=== PATIENT | male | born 1965 | race Caucasian/White ===

== ENCOUNTER 2017-02-21 07:56 | Day surgery (SDC) | payer BC ==
[2017-02-16 15:14] VITALS: BMI 34.5
[~2017-02-21 07:56] MED LIST: LACTATED RINGERS 1,000 ML IV SCH
[2017-02-21 08:16] VITALS: RESP 16; TEMP 97.1
[2017-02-21] MEDS ORDERED: LIDOCAINE 1% 20 ML VIAL (10MG/ML) FOR IV START INTRADERMA ONE (08:25)
[2017-02-21] MEDS ORDERED: PROPOFOL 10 MG/ML 20 ML VIAL IV ONE (09:10)
[2017-02-21] MEDS ORDERED: fentaNYL (PF) 50 MCG/ML 2 ML AMP ONE (09:10)
[2017-02-21] MEDS ORDERED: MIDAZOLAM 2 MG/2 ML VIAL ONE (09:10)
--- NOTE | 2017-02-21 09:49 | P.PCN ---
Date of Procedure: 02/21/17 Procedure(s) Performed: Procedure: Colonoscopy and polypectomy. Preoperative diagnosis: Screening for neoplasia. Postoperative diagnosis: 1. Sigmoid diverticulosis with no evidence of acute diverticulitis or strictures. 2. Multiple sigmoid polyps snared but no large polyps or cancer. Preparation: HalfLytely prep. Sedation: Was provided by anesthesia. Brief clinical history: The patient is a 51-year-old male who is referred for this evaluation for screening for neoplasia age being his risk factor. He has occasional postprandial urgent bowel movements, otherwise, he has no abdominal complaints, bleeding or anemia. No family history of colon cancer. This would be his first colonoscopy. Procedure: With the patient on his left lateral decubitus position and after informed consent and adequate sedation, the perianal area was inspected and it did not show any fissures or fistulas. There were no masses felt on digital rectal examination. The Olympus CFQ 160L video colonoscope was then inserted in the rectum in the usual fashion and advanced to the cecum. There were a few diverticular orifices seen scattered in the sigmoid but I saw no evidence of acute diverticulitis or strictures. Multiple small and medium-sized polyps polyps were seen in the sigmoid which were snared and retrieved by suction, but there was no large polyps or cancer. I retroflexed the endoscope in the rectum before the endoscope was withdrawn. The patient tolerated the procedure well. Plan: The patient was reassured. Discussed dietary measures. I anticipate repeating his colonoscopy in 3-5 years depending on the pathology results. He will follow up with you as planned.
[2017-02-21 10:06] VITALS: BP 125/84; PULSE 72
== END 2017-02-21 10:14 | disposition home or self-care (01) ==
LOC: ORWHC2ENDO 07:56
DX: Z12.11 Encounter for screening for malignant neoplasm of colon (principal); D12.5 Benign neoplasm of sigmoid colon; K63.5 Polyp of colon; K57.30 Diverticulosis of large intestine without perforation or abscess without bleeding; I10 Essential (primary) hypertension; E78.5 Hyperlipidemia, unspecified; F17.200 Nicotine dependence, unspecified, uncomplicated; Z79.1 Long term (current) use of non-steroidal anti-inflammatories (NSAID); Z79.891 Long term (current) use of opiate analgesic; Z79.899 Other long term (current) drug therapy
CPT/HCPCS: 88305; 45385; J2250; J3010; J2704

== ENCOUNTER 2018-11-11 09:35 | Emergency (ER) | payer BC ==
[2018-11-11 09:44] VITALS: TEMP 97.7
[2018-11-11] MEDS ORDERED: DIAZEPAM 5 MG/ML 2 ML INJ IM STA (09:50)
[2018-11-11] MEDS ORDERED: DIPH,PERTUS(ACELL)TETVAC-LF 0.5 ML VIAL IM ONE (09:55)
--- NOTE | 2018-11-11 10:08 | ED ---
Back Pain HPI - General Chief Complaint: Back Pain/Injury Stated Complaint: Fall-back pain Time Seen by Provider: 11/11/18 09:38 Source: patient, EMS, RN notes reviewed Mode of arrival: EMS Limitations: no limitations - History of Present Illness Initial Comments: This a 52-year-old male presents emergency department via EMS chief complaint fall. Patient states he slipped on some ice last night states that he previously crawled into the house and laid there. He was able to get up into his chair this morning but states pain was too unbearable. Patient states that he had lumbar discectomy 4 months ago at [facility]. Patient states that he's had chronic right leg numbness and pain which has not resolved. He denies any bowel, bladder incontinence or retention. Patient states he did strike his head but denies any loss conscious. He does have a small laceration from last night. He is unsure when his last tetanus was. Patient states he hasn't mild right-sided neck pain no posterior neck pain. Patient refused c-collar. Patient denies any upper extremity pain, chest pain, upper back pain, abdominal pain including nausea, vomiting, diarrhea constipation. Patient did take one [place] states that he has not had much relief from. He did not take any muscle relaxers. He states she's having spasms of his back. - Related Data Home Medications Medication Instructions Recorded Confirmed Atorvastatin [Lipitor] 40 mg PO DAILY 02/16/17 02/21/17 Celecoxib [CeleBREX] 200 mg PO DAILY 02/16/17 02/21/17 Cyclobenzaprine [Flexeril] 10 mg PO DAILY PRN 02/16/17 02/21/17 HYDROcodone/APAP 7.5-325MG [[place] 1 tab PO Q6HR PRN 02/16/17 02/21/17 7.5-325] Ibuprofen [Motrin] 800 mg PO TID 02/16/17 02/21/17 Lisinopril [Zestril] 40 mg PO QAM 02/16/17 02/21/17 amLODIPine BESYLATE [Norvasc] 5 mg PO QAM 02/16/17 02/21/17 Allergies Allergy/AdvReac Type Severity Reaction Status Date / Time No Known Allergies Allergy Verified 11/11/18 09:44 Review of Systems ROS Statement: Those systems with pertinent positive or pertinent negative responses have been documented in the HPI. ROS Other: All systems not noted in ROS Statement are negative. Past Medical History Past Medical History: Hyperlipidemia, Hypertension, Osteoarthritis (OA) History of Any Multi-Drug Resistant Organisms: None Reported Past Surgical History: Appendectomy Additional Past Surgical History / Comment(s): pain procedures,rt shoulder repair,lt foot repair x4 to crush injury, Discotomy 07/2018 Past Anesthesia/Blood Transfusion Reactions: No Reported Reaction Additional Past Anesthesia/Blood Transfusion Reaction / Comment(s): no hx blood transfusion Smoking Status: Current every day smoker - Past Family History Mother Family Medical History: No Reported History Father Family Medical History: No Reported History Brother(s) Family Medical History: Cancer Additional Family Medical History / Comment(s): brain General Exam Limitations: no limitations General appearance: alert, in no apparent distress Head exam: Present: atraumatic, normocephalic. Absent: normal inspection ( Small superficial laceration to occipital region) Eye exam: Present: normal appearance, PERRL, EOMI. Absent: scleral icterus, conjunctival injection, periorbital swelling ENT exam: Present: normal exam, normal oropharynx, mucous membranes moist Neck exam: Present: normal inspection, full ROM. Absent: tenderness, meningismus, lymphadenopathy Respiratory exam: Present: normal lung sounds bilaterally. Absent: respiratory distress, wheezes, rales, rhonchi, stridor Cardiovascular Exam: Present: regular rate, normal rhythm, normal heart sounds. Absent: systolic murmur, diastolic murmur, rubs, gallop, clicks GI/Abdominal exam: Present: soft, normal bowel sounds. Absent: distended, tenderness, guarding, rebound, rigid Extremities exam: Present: normal inspection, full ROM, normal capillary refill , other (Also states lower extremity equal bilaterally pain with right leg raise , any movement right leg ). Absent: tenderness, pedal edema, joint swelling, calf tenderness Back exam: Present: tenderness, paraspinal tenderness, vertebral tenderness. Absent: full ROM Neurological exam: Present: alert, oriented X3, CN II-XII intact, reflexes normal. Absent: motor sensory deficit Skin exam: Present: warm, dry, intact, normal color. Absent: rash Course Vital Signs 11/11/18 09:36 Temperature 97.7 F Pulse Rate 80 Respiratory 18 Rate Blood Pressure 128/80 O2 Sat by Pulse 99 Oximetry Medical Decision Making - Medical Decision Making 52-year-old male presented emergency department for slip and fall with complaints of neck and back pain. CT were obtained no acute fracture or intracranial hemorrhage. Patient will continue H[place] and Flexeril at home. Patient will follow-up with his surgeon. Return parameters were discussed. Disposition Clinical Impression: Neck pain, Lumbar back pain, Fall from slipping on ice Disposition: HOME SELF-CARE Condition: Stable Instructions (If sedation given, give patient instructions): Acute Low Back Pain (ED) Additional Instructions: Please return to the Emergency Department if symptoms worsen or any other concerns. Is patient prescribed a controlled substance at d/c from ED?: No Referrals: Niki Reveles DO [Primary Care Provider] - 1-2 days Time of Disposition: 11:51
--- NOTE | 2018-11-11 11:17 | CT ---
EXAMINATION TYPE: CT brain cspine wo con DATE OF EXAM: 11/11/2018 COMPARISON: NONE HISTORY: Fall injury with headache and neck pain Automated Exposure Control for Dose Reduction was Utilized. TECHNIQUE: CT scan of the head and cervical spine are performed without contrast. FINDINGS: There is no acute intracranial hemorrhage, mass effect, or midline shift identified. The ventricles and sulci are within normal limits in size. The globes are intact and the visualized sin uses are clear. The calvarium is intact. Cervical spine is visualized in its entirety from C1 through upper thoracic levels and demonstrates s atisfactory alignment without evidence of acute fracture or dislocation. Prevertebral soft tissue ap pears within normal limits. The C1-C2 articulation is within normal limits on the coronal images. V ertebral body heights within disc space heights are fairly well-maintained. There is severe anterior spurring mid to lower cervical levels. Posterior spur disc complexes are effacing anterior thecal sac at C5-C6 and C6-C7 level on sagittal images. Some uncovertebral facet degenerative changes contribut e to mild bilateral neural foraminal narrowing at bilateral C5-C6 and right C4-C5 level on axial imag es. Mild left-sided neural foraminal narrowing C2-C3 level due to marginal spurring is present. Incid ental 1.4 cm left thyroid nodule axial image 83 warrants follow-up mid pole level posteriorly. An azy gos lobe/fissure is incidentally seen. IMPRESSION: 1. There is no acute fracture or dislocation evident in the cervical spine. Follow-up nonemergent thy roid ultrasound recommended for 1.4 cm left thyroid nodule. 2. No acute intracranial hemorrhage, mass effect, or midline shift is seen.
--- NOTE | 2018-11-11 11:30 | CT ---
EXAMINATION TYPE: CT lumbar spine wo con DATE OF EXAM: 11/11/2018 11:12 AM COMPARISON: None. HISTORY: Fall injury with back pain. CT DLP: 1642.5 mGycm Automated exposure control for dose reduction was used. Unenhanced CT of the lumbar spine was performed. Bone and soft tissue window settings are submitted as well as coronal and sagittal reconstructions. There are 6 lumbar type vertebra identified. Lumbar spine shows satisfactory alignment without eviden ce of acute fracture or dislocation. There is mild disc space narrowing L5 -L6 level with vacuum disc phenomenon. Vertebral body heights and disc space heights are otherwise fairly well-maintained. Ther e is mild to moderate multilevel anterior and lateral spurring. Posterior disc herniation is present L4-L5 level on sagittal image 33 mildly effacing anterior thecal sac. Ill-defined fat stranding poste rior L5 level could reflect scarring at there is been history of prior surgery, correlate clinically. Review of axial images shows mild to moderate broad disc bulge effacing anterior thecal sac on axial image 36 at L3-L4 level. Axial images at L4-L5 level show mild to moderate facet degenerative changes and ligament flavum hype rtrophy effacing posterior lateral thecal sac on axial image 48. There is mild/moderate broad-based p osterior disc protrusion effacing anterior thecal sac. There is mild to moderate bilateral neural for aminal narrowing noted. Axial images at L5 L6 level shows central disc protrusion mildly effacing anterior thecal sac with mi ld facet degenerative changes bilaterally. There is mild to moderate bilateral neural foraminal narro wing seen. Axial images at L6 S1 level show mild to moderate facet degenerative changes bilaterally. Posterior c entral disc protrusion mildly effaces anterior thecal sac on axial image 68. Bilateral neural foramin a are patent. Bladder is distended extending into the lower abdomen only partially imaged. Mild to moderate calcifi ed plaque of aorta extending into iliac branch vessels is present. IMPRESSION: No acute fracture or dislocation is seen.
[2018-11-11] MEDS ORDERED: MORPHINE SULFATE 4 MG/ML SYRINGE IM STA (11:49)
[2018-11-11] MEDS ORDERED: DIAZEPAM 5 MG TAB PO STA (12:52)
[2018-11-11] MEDS ORDERED: HYDROcodone/APAP 10-325MG 1 EACH TAB PO ONE (12:52)
[2018-11-11] MEDS ORDERED: IBUPROFEN 800 MG TAB PO STA (12:55)
[2018-11-11 15:06] VITALS: BP 118/83; PULSE 91; RESP 18
== END 2018-11-11 15:00 | disposition home or self-care (01) ==
LOC: EC 09:35
DX: M54.5 Low back pain (principal); M54.2 Cervicalgia; S01.01XA Laceration without foreign body of scalp, initial encounter; M79.604 Pain in right leg; M79.605 Pain in left leg; R20.0 Anesthesia of skin; E78.5 Hyperlipidemia, unspecified; I10 Essential (primary) hypertension; M19.90 Unspecified osteoarthritis, unspecified site; F17.200 Nicotine dependence, unspecified, uncomplicated; Z79.1 Long term (current) use of non-steroidal anti-inflammatories (NSAID); Z79.899 Other long term (current) drug therapy; Z98.890 Other specified postprocedural states; Z23 Encounter for immunization; W00.0XXA Fall on same level due to ice and snow, initial encounter; Y92.009 Unspecified place in unspecified non-institutional (private) residence as the place of occurrence of the external cause
CPT/HCPCS: 72125; 72131; 70450; 90715; 99284; 96372 ×2; 90471; J2270; J3360

== ENCOUNTER → 2018-11-24 | Outpatient (CLI) | payer BC ==
--- NOTE | 2018-11-25 11:22 | US ---
EXAMINATION TYPE: US thyroid st tissue head/neck DATE OF EXAM: 11/24/2018 COMPARISON: NONE CLINICAL HISTORY: E04.[address] nodule on [address] GLAND SIZE: Right Lobe: 6.1 x 2.4 x 2.3 cm Overall Parenchyma: homogenous Left Lobe: 5.4 x 2.1 x 2.3 cm Overall Parenchyma: homogeneous Isthmus Thickness: 0.4 cm NODULES RIGHT: # of nodules measured on right: 0 LEFT: # of nodules measured on left: 1 1. 1.4 X 1.3 x 1.4 cm mixed nodule at the mid pole with well-defined margins. This nodule is talle r than wide and shows intranodular vascularity. Prior size: BIOINFORMATICS ANALYST ISTHMUS: # of nodules measured in the isthmus: 0 Bilateral neck scanned, no evidence of lymphadenopathy. IMPRESSION: Nonspecific thyroid nodularity. The need to biopsy should be made on a clinical basis.
== END | disposition home or self-care (01) ==
LOC: RADUSWWP 15:56
PROVIDERS: ATTEND Family Medicine
DX: E04.1 Nontoxic single thyroid nodule (principal)
CPT/HCPCS: 76536

== ENCOUNTER → 2019-02-13 | Outpatient (CLI) | payer BC ==
--- NOTE | 2019-02-14 09:36 | US ---
EXAMINATION TYPE: US venous doppler duplex LE RT DATE OF EXAM: 02/13/2019 5:29 PM COMPARISON: NONE CLINICAL HISTORY: I83.11 Vericose Veins. Right leg edema. SIDE PERFORMED: Right TECHNIQUE: The lower extremity deep venous system is examined utilizing real time linear array sonog arash with graded compression, doppler sonography and color-flow sonography. VESSELS IMAGED: External Iliac Vein (EIV) Common Femoral Vein Deep Femoral Vein Greater Saphenous Vein * Femoral Vein Popliteal Vein Small Saphenous Vein * Proximal Calf Veins (* superficial vessels) Right Leg: Negative for DVT IMPRESSION: No evidence of DVT right leg.
== END | disposition home or self-care (01) ==
LOC: RADUSMAIN 17:01
PROVIDERS: ATTEND Family Medicine
DX: I83.11 Varicose veins of right lower extremity with inflammation (principal)

== ENCOUNTER → 2019-08-28 | Outpatient (CLI) | payer BC ==
--- NOTE | 2019-08-28 20:54 | CONS ---
CONSULTATION REASON FOR CONSULTATION: Sleep apnea. This patient is 53, diagnosed having obstructive sleep apnea through an outpatient company, probably [employer], a few years back and he was given a CPAP, which he used for quite some time. Ultimately he gave up the machine, as the patient was unable to get the benefit that he was seeking. Currently he is coming in for reevaluation. He goes to bed around 11 p.m., wakes up at 3:30 a.m. in the morning. He has to drive all the way down to [place], where he is employed by [employer] His Delmar score is 19. He does snore. He quits breathing, as he has been told by other family members. Currently he is and does not have a bed partner. After coming home he feels tired, fatigued and sleepy, and he is coming in for further advice. He has a machine; however, he was not able to bring in the machine today and I am not sure as to the exact pressure that he has been treated with in the past. He is interested in pursuing the treatment again. PAST MEDICAL HISTORY: 1. Obstructive sleep apnea per history. 2. Hypertension. 3. Hyperlipidemia. 4. Chronic arthritis and pain. PAST SURGICAL HISTORY: Past surgical history includes: 1. Left foot surgery. 2. Right shoulder surgery. 3. Appendectomy. 4. Back surgery involving L5. DRUG ALLERGIES: NOT KNOWN. OUTPATIENT MEDICATION LIST: Outpatient medication list includes: 1. Lisinopril 40 daily. 2. Norvasc 5 per day. 3. Lipitor 40 daily. 4. Hydrocodone 7.5. 5. Motrin 800 on a p.r.n. basis. SOCIAL HISTORY: The patient is a nonsmoker. No history of alcoholism. No history of IV drugs. FAMILY HISTORY: Negative for sleep apnea. REVIEW OF SYSTEMS: Fourteen-point review of system was done. Positive findings are all mentioned above in the history of present illness. PHYSICAL EXAMINATION: VITAL SIGNS: BP is 123/75, pulse 77, respirations 16, temperature 98.2, saturation 97% on room air. Neck size is 19 inches. Delmar score is 19. Height is 6 feet 4 inches. Weight is 264 and BMI 35.6. GENERAL APPEARANCE: Calm, comfortable. HEAD: Atraumatic, normocephalic. NECK: Supple. No JVD. No goiter or neck masses. Mallampati class IV. LUNGS: Clear to auscultation. HEART: Heart sounds are regular rate and rhythm. Normal S1, S2. No S3, S4. No murmurs. ABDOMEN: Soft, nontender. No organomegaly. EXTREMITIES: No edema. No cyanosis or clubbing. NEUROLOGIC: Alert and oriented x3. No focal neurological deficits. IMPRESSION: 1. Obstructive sleep apnea, coming in for reevaluation. The workup has been done on an outpatient basis through [facility] and the patient was given a CPAP unit which currently he is not using. Nevertheless, the patient has become symptomatic and his Delmar score is 19. He is coming in for reevaluation. 2. Hypertension. 3. Hyperlipidemia. PLAN: Will initiate a home sleep study to re-evaluate this patient and assess the presence and severity of sleep apnea and decide accordingly if treatment is needed. He has a CPAP machine at home which I would like to see in the future if treatment is indicated. This will largely depend on the home sleep study. Will continue to follow. Sleep hygiene measures were discussed. The patient will need to increase his sleep hours, as the patient has a component of insufficient sleep syndrome. Will continue to follow and make further recommendations based on his progress. MMODL / IJN: [id number] /
== END | disposition home or self-care (01) ==
LOC: SLEEP 16:38
PROVIDERS: ATTEND Internal Medicine Critical Care Medicine
DX: G47.33 Obstructive sleep apnea (adult) (pediatric) (principal); I10 Essential (primary) hypertension; E78.5 Hyperlipidemia, unspecified; M19.90 Unspecified osteoarthritis, unspecified site; Z79.891 Long term (current) use of opiate analgesic; Z79.1 Long term (current) use of non-steroidal anti-inflammatories (NSAID); Z79.899 Other long term (current) drug therapy
CPT/HCPCS: 99211

== ENCOUNTER → 2020-06-13 | Outpatient (CLI) | payer BC ==
--- NOTE | 2020-06-15 15:40 | CT ---
EXAMINATION TYPE: CT foot LT wo con DATE OF EXAM: 06/13/2020 COMPARISON: None HISTORY: Chronic foot pain. History of surgery [address] DLP: 165.2 mGycm Automated exposure control for dose reduction was used. TECHNIQUE: Contiguous axial images of the foot are obtained without intravenous contrast. Coronal and sagittal reformatted images were generated. Three-dimensional images were generated and utilized on a separate workstation. FINDINGS: There are 4 surgical fixation screws and bony arthrodesis of the medial midfoot involving the navicul ar, medial and middle cuneiform, and base of the first and second metatarsals. There is no fracture o r hardware or loosening. There are degenerative changes of the hindfoot and midfoot articulations. Ac hilles and plantar enthesophytes. Decreased osseous mineralization. No acute fracture or dislocation. No significant soft tissue swelling. Three-dimensional images are consistent with the above findings. IMPRESSION: 1. Arthrodesis of the medial midfoot. 2. No acute fracture or dislocation. 3. Degenerative changes of the hindfoot and midfoot.
== END | disposition home or self-care (01) ==
LOC: RADCTMAIN 13:23
PROVIDERS: ATTEND Orthopaedic Surgery Sports Medicine
DX: M19.072 Primary osteoarthritis, left ankle and foot (principal); I10 Essential (primary) hypertension; F17.210 Nicotine dependence, cigarettes, uncomplicated; Z98.1 Arthrodesis status

== ENCOUNTER → 2021-01-02 | Outpatient (CLI) | payer BC ==
--- NOTE | 2021-01-02 08:05 | MR ---
EXAMINATION TYPE: MR lumbar spine wo/w con DATE OF EXAM: 01/02/2021 COMPARISON: CT lumbar spine November 11, 2018 HISTORY: Low back pain radiating into kerry lower extremities, Hx of laminectomy x 3 years TECHNIQUE: Multiplanar, multisequence images of the lumbar spine is performed without and with IV contrast, util izing 11.5 mL intravenous Gadavist FINDINGS: Sagittal images of the lumbar spine show vertebral body heights and alignment to appear sat isfactory. Multilevel disc desiccation. Mild to moderate disc space narrowing L5-S1 level. The conus medullaris is normal in position and signal ending mid L1 level. The bone marrow signal intensity is within normal limits. No suspicious postcontrast enhancement. Axial images begin at labeled T12-L1 level which shows mild broad disc bulge and mild facet arthropat hy bilaterally. Patent bilateral neural foramina. Axial images at L1-L2 show mild facet arthropathy bilaterally. Axial images at L2-L3 appear within normal limits. Axial images at L3-L4 show moderate broad disc bulge effacing anterior thecal sac with mild/moderate facet degenerative changes. There is mild effacement anterior thecal sac. There is mild to moderate b ilateral neural foraminal narrowing. Axial images at the L4-L5 level show moderate broad disc bulge and moderate facet degenerative change s bilaterally. There is moderate bilateral neural foraminal narrowing. Posterior scar tissue L4-L5 le veronica. Axial images at the L5-S1 levels with moderate facet arthropathy bilaterally. There is paracentral di sc protrusion minimally effacing the anterior thecal sac. This is more prominent effacement of the ri ght lateral recess. Suggestion of some scar tissue at this level. Effacement of the right central S1 nerve. There is mild left and moderate right-sided neural foraminal narrowing. Paraspinal muscle bulk is maintained. IMPRESSION: Multilevel degenerative changes in the lumbar spine as detailed above. Attention to L5-S1 level where there is right eccentric disc herniation effacing lateral recess and suspected central r ight S1 nerve.
== END | disposition home or self-care (01) ==
LOC: RADMRIMAIN 06:53
PROVIDERS: ATTEND Physical Medicine & Rehabilitation
DX: M51.27 Other intervertebral disc displacement, lumbosacral region (principal); M47.26 Other spondylosis with radiculopathy, lumbar region; G89.29 Other chronic pain; Z98.890 Other specified postprocedural states
CPT/HCPCS: 72158; A9585

== ENCOUNTER → 2021-04-29 | Outpatient (CLI) | payer BC ==
[~2021-04-29] MED LIST changes: -LACTATED RINGERS 1,000 ML IV SCH; +REGADENOSON 0.4 MG/5 ML SYRINGE IV PRN
--- NOTE | 2021-04-29 12:02 | NM ---
"EXAMINATION TYPE: NM stress lexiscan cardiolite DATE OF EXAM: 04/29/2021 COMPARISON: NONE HISTORY: R07.89 Chest pain, R42 dizziness TECHNIQUE: After the intravenous administration of 10.3 mCi Tc 99m Sestamibi - Cardiolite resting SP ECT images acquired 45 minutes post injection. The patient received 0.4mg Lexiscan, 25.5 mCi Tc 99m Sestamibi - Stress images obtained [address] injection FINDINGS: Review of stress and rest SPECT images demonstrates decreased radio pharmaceutical uptake along the i nferolateral left ventricle towards the apex on stress as compared to rest images, some mild decrease d uptake also noted along anterior wall on stress as compared to rest images. Gated analysis shows n ormal wall motion with an estimated left ventricular ejection fraction of 65 %. IMPRESSION: Pharmacologically induced left ventricular myocardial ischemia, consider echocardiographic correlatio n for elevated ejection fraction A Yellow level critical message alert has been initiated for Niki Reveles DO via the [employer] 36 0 | Critical Results System on 04/29/2021 11:59 AM. This message alert has been sent to Niki Reveles DO via the preferences provided by the clinician for the receipt of Radiology Critical Findings. Oh ssage ID [id number]."
--- NOTE | 2021-04-29 13:56 | EST ---
EXERCISE STRESS AGE: 55 SEX: M HT: 6' WT: 255 lbs PROTOCOL: Lexiscan STAGE: na DURATION OF EXERCISE: na HEART RATE REST: 70 BLOOD PRESSURE REST: 125/78 MAXIMUM HEART RATE ACHIEVED: 90 MAXIMUM BLOOD PRESSURE: 136/74 85% MPHR: 141 100% MPHR: 166 METS: na INDICATIONS: Dizziness and abnormal EKG. Baseline EKG shows sinus rhythm with nonspecific ST-T wave changes in the precordial leads. The patient was given intravenous Lexiscan as per protocol, did not have chest pain or diagnostic ST-segment depression. CONCLUSION: 1. Negative stress test by EKG criteria. 2. Cardiolite portion of the stress test will be reported separately. MMODL / IJN: [id number] /
== END | disposition home or self-care (01) ==
LOC: RADNMMAIN 08:00
PROVIDERS: ATTEND Family Medicine
DX: R94.31 Abnormal electrocardiogram [ECG] [EKG] (principal); F32.9 Major depressive disorder, single episode, unspecified
CPT/HCPCS: 93017; 78452; A9500; J2785

== ENCOUNTER → 2021-05-20 | Day surgery (SDC) | payer BC ==
[2021-05-19 09:29] VITALS: BMI 33.9
[~2021-05-20] MED LIST changes: +ALPRAZolam 0.25 MG TAB PO PRN; +ALPRAZolam 0.5 MG TAB PO PRN; +ASPIRIN 325 MG TAB PO STA; +HEPARIN SODIUM 1,000 UN/ML (10ML VL) ONE; +HEPARIN SODIUM,PORCINE 10,000 UNIT in SODIUM CHLORIDE 0.9% 1,000 ML IRRIGATION PRN; +HEPARIN SODIUM,PORCINE 2,500 UNIT in SODIUM CHLORIDE 0.9% 250 ML IRRIGATION PRN; +IOPAMIDOL-370 125ML BTL INJ ONE; +LIDOCAINE 1% INJ 10MG/ML (20 ML MDV) ONE; +LIDOCAINE 1% INJ 10MG/ML (20 ML MDV) SQ ONE; +MIDAZOLAM 2 MG/2 ML VIAL IV ONE; +NITROGLYCERIN SL TABS 0.4 MG TAB SUBLINGUAL PRN; -REGADENOSON 0.4 MG/5 ML SYRINGE IV PRN; +RX INFO: IV CONTRAST WAS GIVEN 1 EACH MISC MISCELLANE PRN; +SODIUM CHLORIDE 0.9% 1,000 ML IV SCH; +SODIUM CHLORIDE 0.9% 1,000 ML in EMPTY BAG 1 BAG IV ONE; +VERAPAMIL 2.5 MG/ML 2 ML AMP ONE; +fentaNYL (PF) 50 MCG/ML 2 ML AMP IV ONE; +fentaNYL (PF) 50 MCG/ML 2 ML AMP ONE
[2021-05-20 06:45] LABS: Basophils % (A) 1 %; Eosinophils # (A) 0.3 k/uL (0-0.7); Eosinophils % (A) 4 %; HCT 38.4 % (39.0-53.0); HGB 13.3 gm/dL (13.0-17.5); Lymphocytes # (A) 2.1 k/uL (1.0-4.8); Lymphocytes % (A) 27 %; MCH 33.5 pg (25.0-35.0); MCHC 34.6 g/dL (31.0-37.0); Mean Platelet Volume 8.9; Monocytes # (A) 0.5 k/uL (0-1.0); Monocytes % (A) 7 %; Neutrophils # (A) 4.5 k/uL (1.3-7.7); Neutrophils % (A) 59 %; Platelet Count 147 k/uL (150-450); RBC 3.96 m/uL (4.30-5.90); RDW 13.8 % (11.5-15.5); WBC 7.7 k/uL (3.8-10.6)
[2021-05-20 06:56] LABS: African American GFR (CKD) >90 (>60 ml/min/1.73 sqM); Anion Gap 6 mmol/L; Blood Urea Nitrogen 15 mg/dL (9-20); Calcium 9.4 mg/dL (8.4-10.2); Carbon Dioxide 23 mmol/L (22-30); Chloride 110 mmol/L (98-107); Glucose 116 mg/dL (74-99); Non-African American GFR(CKD) >90 (>60 ml/min/1.73 sqM); Potassium 4.2 mmol/L (3.5-5.1); Sodium 139 mmol/L (137-145)
[2021-05-20 07:30] VITALS: RESP 16; TEMP 98.4
--- NOTE | 2021-05-20 11:17 | CC ---
CARDIAC CATHETERIZATION REPORT INDICATION: Shortness of breath with abnormal stress test. PROCEDURE NOTE: After obtaining informed consent, left heart catheterization, coronary angiogram are performed via the right femoral artery using standard Molly catheters. The patient tolerated the procedure well without any obvious immediate complications. A femoral angiogram was performed and Angio-Seal will be deployed for hemostasis. FINDINGS: HEMODYNAMICS: 1. Left ventricular end-diastolic pressure is 12-14 mm there is no significant gradient across the aortic valve. LEFT VENTRICULOGRAM: 1. Not performed ANGIOGRAPHIC DATA: 1. The left main coronary artery is a normal-sized vessel and is free of stenosis. Divides into left anterior descending coronary artery and circumflex coronary artery. Circumflex coronary artery is a nondominant vessel and is free of significant disease. LAD shows a moderate plaque at the origin of the diagonal branch at its worst it seems to be a 40% stenosis. Right coronary artery is a large dominant vessel and is free of significant disease. CONCLUSIONS: 1. Moderate atherosclerotic plaque in the proximal LAD. 2. Normal left ventricular end-diastolic pressure. PLAN: I reviewed angiographic data with the patient and told him that stress test is a false positive stress test and management is going to be in the form of risk factor modification optimal medical therapy. The patient will be discharged home later today and will follow up with me in a week's time. MMODL / IJN: [id number] /
--- NOTE | 2021-05-20 11:29 | LTR ---
May 20, [address] Flores: I performed cardiac catheterization on Simone Watson, a detailed catheterization note is enclosed in the records. In brief, cardiac catheterization revealed moderate nonobstructive disease involving LAD and the patient's management is going to be in the form of risk factor modification and medical therapy. He does not require revascularization at this time. Thank you for giving us the opportunity to participate in the care of this pleasant gentleman. Sincerely, DARIUSZ / JUAN: [id number] /
[2021-05-20 11:34] VITALS: BP 104/68; PULSE 68
== END ==
LOC: CATHCVL 05:50
PROVIDERS: ATTEND Internal Medicine Cardiovascular Disease
DX: I25.10 Atherosclerotic heart disease of native coronary artery without angina pectoris (principal)
CPT/HCPCS: 93458; 80048; 85025; C1769 ×2; C1760; C1894; J2250; J2001; J3010; Q9967

== ENCOUNTER 2022-02-05 10:58 | Day surgery (SDC) | payer BC ==
[2022-02-03 13:08] VITALS: BMI 34.5
[~2022-02-05 10:58] MED LIST changes: -ALPRAZolam 0.25 MG TAB PO PRN; -ALPRAZolam 0.5 MG TAB PO PRN; -ASPIRIN 325 MG TAB PO STA; -HEPARIN SODIUM 1,000 UN/ML (10ML VL) ONE; -HEPARIN SODIUM,PORCINE 10,000 UNIT in SODIUM CHLORIDE 0.9% 1,000 ML IRRIGATION PRN; -HEPARIN SODIUM,PORCINE 2,500 UNIT in SODIUM CHLORIDE 0.9% 250 ML IRRIGATION PRN; -IOPAMIDOL-370 125ML BTL INJ ONE; +LACTATED RINGERS 1,000 ML IV SCH; -LIDOCAINE 1% INJ 10MG/ML (20 ML MDV) ONE; -LIDOCAINE 1% INJ 10MG/ML (20 ML MDV) SQ ONE; -MIDAZOLAM 2 MG/2 ML VIAL IV ONE; -NITROGLYCERIN SL TABS 0.4 MG TAB SUBLINGUAL PRN; -RX INFO: IV CONTRAST WAS GIVEN 1 EACH MISC MISCELLANE PRN; -SODIUM CHLORIDE 0.9% 1,000 ML IV SCH; -SODIUM CHLORIDE 0.9% 1,000 ML in EMPTY BAG 1 BAG IV ONE; -VERAPAMIL 2.5 MG/ML 2 ML AMP ONE; -fentaNYL (PF) 50 MCG/ML 2 ML AMP IV ONE; -fentaNYL (PF) 50 MCG/ML 2 ML AMP ONE
[2022-02-05 12:07] VITALS: RESP 16; TEMP 97.4
[2022-02-05] MEDS ORDERED: PROPOFOL 10 MG/ML 20 ML VIAL IV ONE (12:30)
--- NOTE | 2022-02-05 12:49 | P.PCN ---
Date of Procedure: 02/05/22 Procedure(s) Performed: BRIEF HISTORY: Patient is a 56-year-old pleasant male scheduled for an elective colonoscopy as a part of prior history of colon polyps. His last colonoscopy was 5 years ago. PROCEDURE PERFORMED: Colonoscopy with biopsy and snare polypectomy. PREOPERATIVE DIAGNOSIS: History of colon polyps. IV sedation per Anesthesia. PROCEDURE: After informed consent was obtained, the patient, was brought into the endoscopy unit. IV sedation was administered by Anesthesia under continuous monitoring. Digital rectal examination was normal. Initially the Olympus CF-160 flexible video colonoscope was then inserted in the rectum, gradually advanced into the cecum without any difficulty. Careful examination was performed as the scope was gradually being withdrawn. Ileocecal valve and the appendiceal orifice were visualized and appeared normal. Prep was excellent. Mucosa of the cecum, ascending colon, transverse colon appeared normal. In the descending colon there was a 4 mm sessile polyp removed by cold biopsy. In the sigmoid colon there was a 7 mm polyp removed by snare polypectomy. Rest of the, descending colon, sigmoid colon, and rectum appeared normal. Scattered sigmoid diverticulosis. Retroflexion was performed in the rectum and no lesions were seen. The patient tolerated the procedure well. IMPRESSION: 4 mm descending colon polyp status post cold biopsy. 7 Millimeters sigmoid polyp status post polypectomy Scattered sigmoid diverticulosis. RECOMMENDATIONS: Findings of this examination were discussed with the patientas well as his family. He was advised to follow with the biopsy results. If the biopsy reveals adenoma, he can have a repeat colonoscopy in 5 years.].
[2022-02-05 13:15] VITALS: BP 92/67; PULSE 92
== END 2022-02-05 13:30 | disposition home or self-care (01) ==
LOC: ORWHC2ENDO 10:58
PROVIDERS: ATTEND Internal Medicine Gastroenterology
DX: Z12.11 Encounter for screening for malignant neoplasm of colon (principal); Z86.010 Personal history of colon polyps; D12.4 Benign neoplasm of descending colon; K63.5 Polyp of colon; K57.30 Diverticulosis of large intestine without perforation or abscess without bleeding; E78.5 Hyperlipidemia, unspecified; G47.33 Obstructive sleep apnea (adult) (pediatric); F17.210 Nicotine dependence, cigarettes, uncomplicated; Z79.82 Long term (current) use of aspirin; Z79.899 Other long term (current) drug therapy; Z79.1 Long term (current) use of non-steroidal anti-inflammatories (NSAID); Z79.891 Long term (current) use of opiate analgesic
CPT/HCPCS: 88305; 45380; 45385; J2704

== ENCOUNTER → 2024-08-22 | Outpatient (CLI) | payer MEDICARE ==
--- NOTE | 2024-08-22 10:56 | CTL ---
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 TECHNIQUE: Low dose computed tomography scan was performed through the chest at 1 mm thick sections a nd reconstructed images in multiple planes at 1 mm and [address] DLP: 100.[address] CTDI: 2.6 mGy Automated exposure control for dose reduction was used. CT DIAGNOSTIC QUALITY: Satisfactory FINDINGS: Nodules: 5.6 mm nodule abutting the right major fissure most consistent with intrafissural lymph node. No clinically significant pulmonary nodule. LUNGS: COPD: Severity: None Fibrosis: Severity: None Lymph nodes: None Other findings: Incidental azygous fissure. RIGHT PLEURAL SPACE: Effusion: None Calcification: None Thickening: None Pneumothorax: None LEFT PLEURAL SPACE: Effusion: None Calcification: None Thickening: None Pneumothorax: None HEART: Heart Size: Mildly prominent Coronary Calcification: None Pericardial Effusion: None OTHER FINDINGS: Upper abdomen: None Bony thorax: DISH of the thoracic spine. Supraclavicular region: None Other: Minimal bilateral gynecomastia. IMPRESSION: No clinically significant pulmonary nodule. CT LUNG RAD AND CT CHEST RECOMMENDATION: Lung-Rad 1 Negative: Continue annual screening with LDCT in 12 months. S Modifier (other clinically significant findings): None [facility], , 08/22/2024 10:54 AM
== END | disposition home or self-care (01) ==
LOC: RADCTMAIN 09:17
PROVIDERS: ATTEND Family Medicine
DX: Z12.2 Encounter for screening for malignant neoplasm of respiratory organs (principal); F17.210 Nicotine dependence, cigarettes, uncomplicated
CPT/HCPCS: 71271